=== PATIENT | female | born 2000 | race Caucasian/White ===

== ENCOUNTER 2023-04-30 15:29 | Emergency (ER) | payer OTHER, SELFPAY ==
[2023-04-30 15:45] VITALS: BP 129/61; PULSE 104; RESP 16; TEMP 37.3; O2SAT 99
--- NOTE | 2023-04-30 16:09 | ED.URI ---
HPI - URI/Sore Throat General Chief Complaint: Upper Respiratory Infection Stated Complaint: runny nose,both ears ache,sore throat Time Seen by Provider: 04/30/23 16:09 History of Present Illness HPI Narrative: 22-year-old female presented for complaint of left ear pain for a few days, with sinus congestion and drainage and sore throat intermittently over the past few weeks. Taking [id number] medication for symptoms. Would like tested for flu. Related Data Allergies Allergy/AdvReac Type Severity Reaction Status Date / Time No Known Allergies Allergy Verified 04/30/23 15:44 Review of Systems Review of Systems: CONSTITUTIONAL: Denies body aches, fever, chills, or sweats. EYES: Denies visual changes, redness, or discharge. ENT: reports rhinorrhea, congestion, otalgia. CARDIOVASCULAR: Denies chest pain, palpitations, or edema. RESPIRATORY: Denies dyspnea. GASTROINTESTINAL: Denies abdominal pain, nausea, vomiting, or diarrhea. SKIN: Denies rash, itching, or wounds. MUSCULOSKELETAL: Denies back pain, joint pain, or myalgia. NEUROLOGIC: Denies headache [facility] Past Medical History Medical History (Updated 04/30/23 @ 16:15 by Mallory Gordon, MAX) No pertinent past medical history Exam Narrative: GENERAL: well-appearing EYES: conjunctivae clear ENT: Mucous membranes moist. Right TM pearly mims with normal light reflex ; Left TM erythematous, bulging and intact, canal not erythematous, no drainage no tragal tenderness. Oropharynx erythematous without lesions. No drooling, no hoarseness, no trismus, uvula midline. No tripod positioning, hot potato voice, or soft palate swelling. NECK: Supple. No lymphadenopathy CHEST: Clear to auscultation, breath sounds equal. No respiratory distress, speaks in full sentences. HEART: Regular rate and rhythm. No murmur heard. SKIN: Warm, dry, no rash. NEURO: Alert and oriented x3. Course Course Emergency Course: Patient is aware of diagnosis, understands and agrees to treatment plan. Anticipatory guidance given. Patient agrees to follow-up as directed and is aware of reasons to seek care at the emergency department. Portions of this record may have been created with voice recognition software Level of Care: Express Care Visit Vital Signs Vital signs: Vital Signs Temperature 99.2 F 04/30/23 15:45 Pulse Rate 104 H 04/30/23 15:45 Respiratory Rate 16 04/30/23 15:45 Blood Pressure 129/61 04/30/23 15:45 Pulse Oximetry 99 04/30/23 15:45 Oxygen Delivery Room Air 04/30/23 15:45 Temperature 99.2 F 04/30/23 15:45 Pulse Rate 104 H 04/30/23 15:45 Respiratory Rate 16 04/30/23 15:45 Blood Pressure 129/61 04/30/23 15:45 Pulse Oximetry 99 04/30/23 15:45 Oxygen Delivery Room Air 04/30/23 15:45 MDM - URI/Sore Throat MDM Narrative Medical decision making narrative: negative flu. Patient declined strep testing. Discussed physical exam findings consistent left AOM. Advise supportive treatments. Patient is appropriate for outpatient treatment and follow-up. Differential Diagnosis Differential diagnosis: Likely upper respiratory infection, otitis media, sinusitis, viral infection, influenza and pharyngitis Discharge Plan Discharge Clinical Impression: Otitis media Qualifiers: Otitis media type: suppurative Chronicity: acute Laterality: left Recurrence: non-recurrent Spontaneous tympanic membrane rupture: without spontaneous rupture Qualified Code(s): H66.002 - Acute suppurative otitis media without spontaneous rupture of ear drum, left ear Patient Disposition: Home, Self-Care Condition: Stable Instructions: Antibiotic Form, Ear Infection (ED) Additional Instructions: Take antibiotics as directed. Recommend antihistamine such as Benadryl, Zyrtec or Cara for sinus congestion Flonase nasal spray, 1 spray in each nostril once daily until symptoms improve Symptomatic treatment includes: rest, fluids, and i
== END 2023-04-30 16:16 | disposition home or self-care (01) ==
PROVIDERS: Emergency Provider Nurse Practitioner Family
DX: H66.002 Acute suppurative otitis media without spontaneous rupture of ear drum, left ear (principal)
CPT/HCPCS: 87804; 99213; G0463